=== PATIENT | female | born 1985 | race Caucasian/White ===

== ENCOUNTER 2018-01-01 19:07 | Emergency (ER) | payer OTHER, MEDICAID, SELFPAY ==
[2018-01-01 19:18] VITALS: BP 98/66; PULSE 98; RESP 20; O2SAT 97
--- NOTE | 2018-01-01 19:22 | ED.EXTPRO ---
HPI - Extremity Problem <FERMIN Iverson - Last Filed: 01/01/18 20:39> General Chief complaint: Extremity Problem,Nontraumatic Stated complaint: LT ARM NUMBNESS AND TINGLING Time Seen by Provider: 01/01/18 19:22 Source: patient Mode of arrival: ambulatory Limitations: no limitations History of Present Illness HPI Narrative: c/o sudden onset L arm tingling and pain, says it feels like pins and needles are sticking her, denies any injury/trauma, R handed MD Complaint: extremity pain Onset (ago): hour(s) (last night) Pain Consistency: constant Location: left Quality: stabbing and sharp Radiation: none Relieving factors: nothing Exacerbating factors: range of motion Associated symptoms: denies other symptoms Related Data Previous Rx's Medication Instructions Recorded cyclobenzaprine 10 mg PO TIDP PRN #90 tab 02/21/17 levothyroxine 50 mcg PO QAM #30 tab 02/21/17 ibuprofen 800 mg PO Q8HP PRN #30 tab 03/04/17 citalopram 20 mg tablet 20 mg PO DAILY #30 tab 10/11/17 omeprazole 20 mg capsule,delayed 20 mg PO DAILY #30 cap 10/11/17 release naproxen [Naprosyn] 500 mg PO BID #20 tab 01/01/18 Allergies Allergy/AdvReac Type Severity Reaction Status Date / Time No Known Drug Allergies Allergy Unverified 10/11/17 17:51 Review of Systems <FERMIN Iverson - Last Filed: 01/01/18 20:39> Review of Systems All systems reviewed & are unremarkable except as noted in HPI and below Constitutional Reports as per HPI and Reports system reviewed and no additional complaints, except as docu ENT Ears, Nose, Mouth, and Throat: Denies neck pain Cardiovascular Denies chest pain, Denies rapid heart rate and Denies dyspnea Respiratory Denies pain with cough and Denies dyspnea Musculoskeletal Reports as per HPI, Denies abnormal gait, Denies back pain, Denies deformity, Denies joint swelling, Reports limited range of motion, Denies muscle weakness, Denies neck pain, Denies numbness and Reports tingling Integumentary/Breasts Reports as per HPI, Denies unusual bruising and Denies wounds Neurologic Denies abnormal gait, Denies numbness and Reports tingling Exam <Rekha HadleyFERMIN bucio - Last Filed: 01/01/18 20:39> Initial Vital Signs Initial Vital Signs: Vital Signs Pulse Rate 98 H 01/01/18 19:18 Respiratory Rate 20 01/01/18 19:18 Blood Pressure 98/66 01/01/18 19:18 Pulse Oximetry 97 01/01/18 19:18 Const General: cooperative, healthy appearing, comfortable, well developed and well groomed Nutritional Appearance: average body habitus Orientation: alert, awake and oriented x3 HENMT Head: normal to inspection and normocephalic Ears: hearing grossly normal bilaterally, external ears normal, TM's normal bilaterally and mastoids normal Nose: external nose normal and nares normal Face and sinus: normal facial exam, sinuses nontender and face symmetric Mouth: oral mucosae normal, lip normal, tongue normal, oropharynx normal and moist mucous membranes Teeth and gingiva: dentition normal and gingiva normal Throat: posterior oropharynx normal, tonsils normal and uvula midline Eyes General: appearance normal, both eyes and all related structures Visual Byrne: normal visual byrne by confrontation Eyelids: eyelids normal Conjunctivae: conjunctivae normal Sclera: sclerae normal Pupils: PERRL EOM: EOM intact bilaterally Neck Neck: normal visual inspection, full ROM, no meningeal signs, trachea midline, supple and No lymphadenopathy Chest Chest: normal inspection of the chest Resp Effort & Inspection: normal respiratory effort and able to speak in complete sentences Auscultation: clear to auscultation bilaterally Cardio Rate: regular rate Rhythm: regular rhythm Heart Sounds: S1 normal and S2 normal Back/Spine/Pelvis Cervical Spine: cervical ROM normal Thoracic/Lumbar Spine: thoraco-lumbar ROM normal Skin General: no rashes or lesions noted, elasticity normal, turgor normal and dry skin Lesions: no lesions Rashes: no rashes Wounds: no wounds Neuro General: alert, awake, oriented x3 and meningeal signs present Cognition: normal cognition Speech: speech normal Gait: normal gait Motor: muscle tone normal throughout Sensory Exam: no sensory deficits noted Extrem General: normal to inspection and full ROM Right upper extremity: normal to inspection and full ROM Left upper extremity: normal capillary refill and shoulder/upper arm (holding arm in flexion and adduction and tender everywhere I palpate, and decreased rom secondary to pain, no swelling, no deformity) Details: tenderness and abnormal ROM; no swelling Psych Appearance: grossly normal and well kempt Mental Status: mental status grossly normal Speech and Movement: speech and movement normal Mood: congruent mood Affect: normal affect Attitude: cooperative Thought Process: normal Thought Content: normal Judgment: judgment good <Matthew Sheridan DO - Last Filed: 01/01/18 23:51> Initial Vital Signs Initial Vital Signs: Vital Signs Pulse Rate 98 H 01/01/18 19:18 Respiratory Rate 20 01/01/18 19:18 Blood Pressure 98/66 01/01/18 19:18 Pulse Oximetry 97 01/01/18 19:18 Course <FERMIN Iverson - Last Filed: 01/01/18 20:39> Orders Ordered: ED Orders 01/01/18 19:25 XR shoulder LT min 2V Stat Discontinued Medications Tramadol HCl (Ultram) 50 mg PO NOW ONE Stop: 01/01/18 19:26 Last Admin: 01/01/18 19:28 Dose: 50 mg Vital Signs - 8 hr 01/01/18 19:18 01/01/18 19:48 Pulse Rate 98 H 98 H Respiratory Rate 20 20 Blood Pressure 98/66 98/66 Pulse Oximetry 97 97 <Matthew Sheridan DO - Last Filed: 01/01/18 23:51> Orders Ordered: ED Orders 01/01/18 19:25 XR shoulder LT min 2V Stat Discontinued Medications Tramadol HCl (Ultram) 50 mg PO NOW ONE Stop: 01/01/18 19:26 Last Admin: 01/01/18 19:28 Dose: 50 mg Vital Signs - 8 hr 01/01/18 19:18 01/01/18 19:48 Pulse Rate 98 H 98 H Respiratory Rate 20 20 Blood Pressure 98/66 98/66 Pulse Oximetry 97 97 MDM - Extremity (Nontraumatic) <FERMIN Iverson - Last Filed: 01/01/18 20:39> Differential Diagnosis Likely herpes zoster, deep venous thrombosis of upper extremity and other (tendonits, rotator cuff issue, ac separation, nerve impingement) Imaging Data xr shoulder: Radiologist's impression: [address] [address] XRay Report Signed Patient: Caryl Ramachandran [facility]#: [id number] : 1985Acct:[id number] Age/Sex: 32 / FDate of Service: 01/01/18 Loc: ED Accession Number: [id number] Procedure: XR shoulder LT min 2V Ordering Provider: Rekha Gu PROCEDURE: XR SHOULDER LT MIN 2V INDICATIONS: pain TECHNIQUE: Coronal 3 views of the shoulder were acquired. COMPARISON: None. FINDINGS: Bones: No fractures or dislocations. A circumscribed sclerotic focus is present within the humeral head which likely represents a small bone island. Visualized ribs appear intact. Soft tissues: No suspicious soft tissue calcifications. IMPRESSION: 1. No acute radiographic findings. If pain persists, repeat study in 5-7 days is recommended to exclude occult fracture. 2. Probable humeral bone island. No priors are available for comparison. If asymptomatic in this region, three-month followup is recommended. If the patient endorses focal bone pain, further characterization with MRI could be warranted. Dictated by: Rosie Castro M.D. on 01/01/2018 at 19:57 Approved by: Rosie Castro M.D. on 01/01/2018 at 19:58 ECG Data Attestation EKG: I personally reviewed and interpreted this ECG as follows: (nsr, hr 65) Discharge Plan Departure Patient Disposition: Home Clinical Impression: Tendonitis, Arm pain Discharge Date/Time: 01/01/18 20:30 Interventions: ED Discharge Assessment Last Done: 01/01/18 20:30 Instructions: Calcific Tendonitis of the Shoulder Activity Restrictions/Additional Instructions: heating pad Prescriptions: New naproxen [Naprosyn] 500 mg tablet 500 mg PO BID Qty: 20 RF: 0 No Action citalopram 20 mg tablet 20 mg PO DAILY Qty: 30 RF: 5 omeprazole 20 mg capsule,delayed release(DR/EC) 20 mg PO DAILY Qty: 30 RF: 5 cyclobenzaprine 10 MG tablet 10 mg PO TIDP PRNQty: 90 RF: 2 levothyroxine 50 MCG tablet 50 mcg PO QAM Qty: 30 RF: 10 ibuprofen 800 MG tablet 800 mg PO Q8HP PRNQty: 30 RF: 0 Referrals: Yann Hart MD [Primary Care Provider] - (follow up recommended in approx 1 week if symptoms continue) <Matthew Sheridan DO - Last Filed: 01/01/18 23:51> Cosign ED Attending Cosignature Attestation: I was available for consultation during this patient's emergency department encounter
--- NOTE | 2018-01-01 19:25 | DI.RAD.S_ITS ---
PROCEDURE: XR SHOULDER LT MIN 2V INDICATIONS: pain TECHNIQUE: Coronal 3 views of the shoulder were acquired. COMPARISON: None. FINDINGS: Bones: No fractures or dislocations. A circumscribed sclerotic focus is present within the humeral head which likely represents a small bone island. Visualized ribs appear intact. Soft tissues: No suspicious soft tissue calcifications. IMPRESSION: 1. No acute radiographic findings. If pain persists, repeat study in 5-7 days is recommended to exclude occult fracture. 2. Probable humeral bone island. No priors are available for comparison. If asymptomatic in this region, three-month followup is recommended. If the patient endorses focal bone pain, further characterization with MRI could be warranted. Dictated by: Rosie Castro M.D. on 01/01/2018 at 19:57 Approved by: Rosie Castro M.D. on 01/01/2018 at 19:58
[2018-01-01] MEDS: TRAMADOL 50 MG TABLET PO (19:28)
--- NOTE | 2018-01-01 19:30 | ED_ITS ---
HPI - Extremity Problem <FERMIN Iverson - Last Filed: 01/01/18 20:39> General Chief complaint: Extremity Problem,Nontraumatic Stated complaint: LT ARM NUMBNESS AND TINGLING Time Seen by Provider: 01/01/18 19:22 Source: patient Mode of arrival: ambulatory Limitations: no limitations History of Present Illness HPI Narrative: c/o sudden onset L arm tingling and pain, says it feels like pins and needles are sticking her, denies any injury/trauma, R handed MD Complaint: extremity pain Onset (ago): hour(s) (last night) Pain Consistency: constant Location: left Quality: stabbing and sharp Radiation: none Relieving factors: nothing Exacerbating factors: range of motion Associated symptoms: denies other symptoms Related Data Previous Rx's Medication Instructions Recorded cyclobenzaprine 10 mg PO TIDP PRN #90 tab 02/21/17 levothyroxine 50 mcg PO QAM #30 tab 02/21/17 ibuprofen 800 mg PO Q8HP PRN #30 tab 03/04/17 citalopram 20 mg tablet 20 mg PO DAILY #30 tab 10/11/17 omeprazole 20 mg capsule,delayed 20 mg PO DAILY #30 cap 10/11/17 release naproxen [Naprosyn] 500 mg PO BID #20 tab 01/01/18 Allergies Allergy/AdvReac Type Severity Reaction Status Date / Time No Known Drug Allergies Allergy Unverified 10/11/17 17:51 Review of Systems <FERMIN Iverson - Last Filed: 01/01/18 20:39> Review of Systems All systems reviewed & are unremarkable except as noted in HPI and below Constitutional Reports as per HPI and Reports system reviewed and no additional complaints, except as docu ENT Ears, Nose, Mouth, and Throat: Denies neck pain Cardiovascular Denies chest pain, Denies rapid heart rate and Denies dyspnea Respiratory Denies pain with cough and Denies dyspnea Musculoskeletal Reports as per HPI, Denies abnormal gait, Denies back pain, Denies deformity, Denies joint swelling, Reports limited range of motion, Denies muscle weakness, Denies neck pain, Denies numbness and Reports tingling Integumentary/Breasts Reports as per HPI, Denies unusual bruising and Denies wounds Neurologic Denies abnormal gait, Denies numbness and Reports tingling Exam <Rekha HadleyFERMIN bucio - Last Filed: 01/01/18 20:39> Initial Vital Signs Initial Vital Signs: Vital Signs Pulse Rate 98 H 01/01/18 19:18 Respiratory Rate 20 01/01/18 19:18 Blood Pressure 98/66 01/01/18 19:18 Pulse Oximetry 97 01/01/18 19:18 Const General: cooperative, healthy appearing, comfortable, well developed and well groomed Nutritional Appearance: average body habitus Orientation: alert, awake and oriented x3 HENMT Head: normal to inspection and normocephalic Ears: hearing grossly normal bilaterally, external ears normal, TM's normal bilaterally and mastoids normal Nose: external nose normal and nares normal Face and sinus: normal facial exam, sinuses nontender and face symmetric Mouth: oral mucosae normal, lip normal, tongue normal, oropharynx normal and moist mucous membranes Teeth and gingiva: dentition normal and gingiva normal Throat: posterior oropharynx normal, tonsils normal and uvula midline Eyes General: appearance normal, both eyes and all related structures Visual Byrne: normal visual byrne by confrontation Eyelids: eyelids normal Conjunctivae: conjunctivae normal Sclera: sclerae normal Pupils: PERRL EOM: EOM intact bilaterally Neck Neck: normal visual inspection, full ROM, no meningeal signs, trachea midline, supple and No lymphadenopathy Chest Chest: normal inspection of the chest Resp Effort & Inspection: normal respiratory effort and able to speak in complete sentences Auscultation: clear to auscultation bilaterally Cardio Rate: regular rate Rhythm: regular rhythm Heart Sounds: S1 normal and S2 normal Back/Spine/Pelvis Cervical Spine: cervical ROM normal Thoracic/Lumbar Spine: thoraco-lumbar ROM normal Skin General: no rashes or lesions noted, elasticity normal, turgor normal and dry skin Lesions: no lesions Rashes: no rashes Wounds: no wounds Neuro General: alert, awake, oriented x3 and meningeal signs present Cognition: normal cognition Speech: speech normal Gait: normal gait Motor: muscle tone normal throughout Sensory Exam: no sensory deficits noted Extrem General: normal to inspection and full ROM Right upper extremity: normal to inspection and full ROM Left upper extremity: normal capillary refill and shoulder/upper arm (holding arm in flexion and adduction and tender everywhere I palpate, and decreased rom secondary to pain, no swelling, no deformity) Details: tenderness and abnormal ROM; no swelling Psych Appearance: grossly normal and well kempt Mental Status: mental status grossly normal Speech and Movement: speech and movement normal Mood: congruent mood Affect: normal affect Attitude: cooperative Thought Process: normal Thought Content: normal Judgment: judgment good <Matthew Sheridan DO - Last Filed: 01/01/18 23:51> Initial Vital Signs Initial Vital Signs: Vital Signs Pulse Rate 98 H 01/01/18 19:18 Respiratory Rate 20 01/01/18 19:18 Blood Pressure 98/66 01/01/18 19:18 Pulse Oximetry 97 01/01/18 19:18 Course <FERMIN Iverson - Last Filed: 01/01/18 20:39> Orders Ordered: ED Orders 01/01/18 19:25 XR shoulder LT min 2V Stat Discontinued Medications Tramadol HCl (Ultram) 50 mg PO NOW ONE Stop: 01/01/18 19:26 Last Admin: 01/01/18 19:28 Dose: 50 mg Vital Signs - 8 hr 01/01/18 19:18 01/01/18 19:48 Pulse Rate 98 H 98 H Respiratory Rate 20 20 Blood Pressure 98/66 98/66 Pulse Oximetry 97 97 <Matthew Sheridan DO - Last Filed: 01/01/18 23:51> Orders Ordered: ED Orders 01/01/18 19:25 XR shoulder LT min 2V Stat Discontinued Medications Tramadol HCl (Ultram) 50 mg PO NOW ONE Stop: 01/01/18 19:26 Last Admin: 01/01/18 19:28 Dose: 50 mg Vital Signs - 8 hr 01/01/18 19:18 01/01/18 19:48 Pulse Rate 98 H 98 H Respiratory Rate 20 20 Blood Pressure 98/66 98/66 Pulse Oximetry 97 97 MDM - Extremity (Nontraumatic) <FERMIN Iverson - Last Filed: 01/01/18 20:39> Differential Diagnosis Likely herpes zoster, deep venous thrombosis of upper extremity and other ( tendonits, rotator cuff issue, ac separation, nerve impingement) Imaging Data xr shoulder: Radiologist's impression: [address] [address] XRay Report Signed Patient: Caryl Ramachandran [facility]#: [id number] : 1985Acct:[id number] Age/Sex: 32 / FDate of Service: 01/01/18 Loc: ED Accession Number: [id number] Procedure: XR shoulder LT min 2V Ordering Provider: Rekha Gu PROCEDURE: XR SHOULDER LT MIN 2V INDICATIONS: pain TECHNIQUE: Coronal 3 views of the shoulder were acquired. COMPARISON: None. FINDINGS: Bones: No fractures or dislocations. A circumscribed sclerotic focus is present within the humeral head which likely represents a small bone island. Visualized ribs appear intact. Soft tissues: No suspicious soft tissue calcifications. IMPRESSION: 1. No acute radiographic findings. If pain persists, repeat study in 5-7 days is recommended to exclude occult fracture. 2. Probable humeral bone island. No priors are available for comparison. If asymptomatic in this region, three-month followup is recommended. If the patient endorses focal bone pain, further characterization with MRI could be warranted. Dictated by: Rosie Castro M.D. on 01/01/2018 at 19:57 Approved by: Rosie Castro M.D. on 01/01/2018 at 19:58 ECG Data Attestation EKG: I personally reviewed and interpreted this ECG as follows: (nsr , hr 65) Discharge Plan Departure Patient Disposition: Home Clinical Impression: Tendonitis, Arm pain Discharge Date/Time: 01/01/18 20:30 Interventions: ED Discharge Assessment Last Done: 01/01/18 20:30 Instructions: Calcific Tendonitis of the Shoulder Activity Restrictions/Additional Instructions: heating pad Prescriptions: New naproxen [Naprosyn] 500 mg tablet 500 mg PO BID Qty: 20 RF: 0 No Action citalopram 20 mg tablet 20 mg PO DAILY Qty: 30 RF: 5 omeprazole 20 mg capsule,delayed release(DR/EC) 20 mg PO DAILY Qty: 30 RF: 5 cyclobenzaprine 10 MG tablet 10 mg PO TIDP PRNQty: 90 RF: 2 levothyroxine 50 MCG tablet 50 mcg PO QAM Qty: 30 RF: 10 ibuprofen 800 MG tablet 800 mg PO Q8HP PRNQty: 30 RF: 0 Referrals: Yann Hart MD [Primary Care Provider] - (follow up recommended in approx 1 week if symptoms continue) <Matthew Sheridan DO - Last Filed: 01/01/18 23:51> Cosign ED Attending Cosignature Attestation: I was available for consultation during this patient's emergency department encounter
[2018-01-01 19:48] VITALS: BP 98/66; PULSE 98; RESP 20; O2SAT 97
== END 2018-01-01 20:30 | disposition home or self-care (01) ==
PROVIDERS: Emergency Provider Nurse Practitioner; Family Provider Family Medicine; PCP Family Medicine
DX: M65.222 Calcific tendinitis, left upper arm (principal)
CPT/HCPCS: 73030; 93005; 99282; 99284

== ENCOUNTER → 2018-06-11 10:38 | Outpatient (CLI) | payer OTHER, MEDICAID, SELFPAY ==
[2018-06-11 12:56] LABS: Hepatitis B Surface Antigen NEGATIVE s/c (NEGATIVE)
[2018-06-11 13:29] LABS: HIV 1 and 2 Antibody NEGATIVE (NEGATIVE); Hep C Virus Ab w/Reflex Quant NEGATIVE s/c (NEGATIVE)
[2018-06-13 14:50] LABS: HSV 1 IgM Screen Negative (Negative); HSV 2 IgM Screen Negative (Negative)
[2018-06-13 15:05] LABS: RPR Screen Nonreactive (Nonreactive)
== END ==
PROVIDERS: PCP Nurse Practitioner Family; Visit Provider Nurse Practitioner Family
DX: Z20.2 Contact with and (suspected) exposure to infections with a predominantly sexual mode of transmission (principal)
CPT/HCPCS: 36415; 86592; 86694; 86703; 86803; 87340

== ENCOUNTER → 2019-11-24 10:57 | Outpatient (CLI) | payer OTHER, MEDICAID, SELFPAY ==
[2019-11-25 07:48] LABS: COVID19 Sendout Not Detected (Not Detect)
== END ==
PROVIDERS: PCP Nurse Practitioner Family; Visit Provider Physician Assistant
DX: Z11.59 Encounter for screening for other viral diseases (principal)
CPT/HCPCS: 87635

== ENCOUNTER → 2020-05-04 14:22 | Outpatient (CLI) | payer OTHER, MEDICAID, SELFPAY ==
[2020-05-04] MEDS: COVID-19 VACC #1, MRNA(MOD) 100 MCG/0.5 ML VIAL IM (14:28)
== END ==
PROVIDERS: PCP Nurse Practitioner Family; Visit Provider Internal Medicine
DX: Z23 Encounter for immunization (principal)
CPT/HCPCS: 0011A; 91301

== ENCOUNTER → 2020-06-01 14:20 | Outpatient (CLI) | payer OTHER, MEDICAID, SELFPAY ==
[2020-06-01] MEDS: COVID-19 VACC #2, MRNA(MOD) 100 MCG/0.5 ML VIAL IM (14:28)
== END ==
PROVIDERS: PCP Nurse Practitioner Family; Visit Provider Internal Medicine
DX: Z23 Encounter for immunization (principal)
CPT/HCPCS: 0012A; 91301

== ENCOUNTER → 2020-08-23 15:20 | Outpatient (CLI) | payer OTHER, MEDICAID, SELFPAY ==
[2020-08-23 17:15] LABS: COVID19 -Nasal RAPID Negative (Negative)
== END ==
PROVIDERS: PCP Nurse Practitioner Family; Visit Provider Physician Assistant
DX: J02.9 Acute pharyngitis, unspecified (principal); Z20.822 Contact with and (suspected) exposure to COVID-19; R05 Cough; R09.89 Other specified symptoms and signs involving the circulatory and respiratory systems; R51.9 Headache, unspecified
CPT/HCPCS: 87635

== ENCOUNTER → 2020-11-30 14:00 | Outpatient (CLI) | payer OTHER, MEDICAID, SELFPAY ==
[2020-11-30 14:29] LABS: COVID19 -Nasal RAPID Negative (Negative)
== END ==
PROVIDERS: PCP Nurse Practitioner Family; Visit Provider Nurse Practitioner
DX: Z20.822 Contact with and (suspected) exposure to COVID-19 (principal); J02.9 Acute pharyngitis, unspecified; R06.02 Shortness of breath; R51.9 Headache, unspecified; R52 Pain, unspecified
CPT/HCPCS: 87635